=== PATIENT | female | born 1960 | race Caucasian/White ===

== ENCOUNTER 2024-07-27 10:49 | Outpatient (CLI) | payer MEDICAID, SELFPAY ==
--- NOTE | 2024-07-27 11:00 | CRLHL7_ITS ---
For Patients: As a result of the Century Cures Act, medical imaging exams and procedure reports are released immediately into your electronic medical record. You may view this report before your referring provider. If you have questions, please contact your health care provider. Indication: SINUSITIS Technique: Performed without IV contrast Comparison: None available Findings: Frontal sinuses: Clear. Ethmoid sinuses: Clear. Maxillary sinuses: Clear. The maxillary sinus drainage pathways are patent on both sides. Sphenoid sinuses: Clear, including both sphenoethmoidal recesses. Nasal Cavity: Nasal septum is relatively midline. No lesvia bullosa. Nasal turbinate mucosa is atrophied. No TMJ abnormalities identified. The visualized portions of the orbits, intracranial contents and upper soft tissue neck are grossly negative. Impression: 1. Clear sinuses 2. No nasal polyps. Please note that all CT scans at this facility use dose modulation, iterative reconstruction, and/or weight-based dosing when appropriate to reduce radiation dose to as low as reasonably achievable. Dictated by Cristhian Wong MD @ 07/27/2024 2:51:27 PM (Electronically Signed)
== END 2024-07-27 10:50 | disposition home or self-care (01) ==
LOC: CT 10:52
PROVIDERS: PCP Family Medicine; Visit Provider Otolaryngology
DX: J32.9 Chronic sinusitis, unspecified (principal)
CPT/HCPCS: 70486

== ENCOUNTER 2024-08-23 13:30 | Outpatient (CLI) | payer MEDICAID, SELFPAY ==
--- NOTE | 2024-08-23 14:49 | P.ANES_ITS ---
Anesthesia Charges Start Date/Time Anesthesia Start Date: 08/23/24 Anesthesia Start Time: 14:25 Stop Date/Time Anesthesia Stop Date: 08/23/24 Anesthesia Stop Time: 14:46 Coding CPT Codes CPT Codes: ANES UPR GI NDSC PX NOS - 39446 ([id number]) P2 - PATIENT W/MILD SYST DISEASE, QZ - SHIP CLEANER SVC W/O AIRCRAFT STRUCTURAL DESIGN ENGINEER BY
--- NOTE | 2024-08-23 14:49 | W.ANESCHARGE ---
Anesthesia Charges Start Date/Time Anesthesia Start Date: 08/23/24 Anesthesia Start Time: 14:25 Stop Date/Time Anesthesia Stop Date: 08/23/24 Anesthesia Stop Time: 14:46 Coding CPT Codes CPT Codes: ANES UPR GI NDSC PX NOS - 53000 ([id number]) P2 - PATIENT W/MILD SYST DISEASE, QZ - HEAD KNITTING MACHINE FIXER SVC W/O FUNDRAISING MANAGER BY
== END 2024-08-23 13:31 | disposition home or self-care (01) ==
LOC: OP CLINIC 13:31
PROVIDERS: PCP Family Medicine; Visit Provider Surgery
DX: K21.9 Gastro-esophageal reflux disease without esophagitis (principal); K22.89 Other specified disease of esophagus; Z98.84 Bariatric surgery status
CPT/HCPCS: 00731; 43239; 88305; J2704; J3490